=== PATIENT | male | born 1945 | race Caucasian/White ===

== ENCOUNTER 2019-03-15 12:41 | Day surgery (SDC) | payer OTHER ==
[2019-03-15] MEDS ORDERED: ceFAZolin 2 GM/DEXTROSE 100 ML IV ONE (12:55)
[2019-03-15] MEDS ORDERED: LR 1,000 ML IV ONE (12:56)
--- NOTE | 2019-03-15 13:59 | PDHPUP ---
History & Physical Update H&P update statement: This history and physical update is based on an assessment of the patient which was completed after admission or registration (within 24 hours), but prior to the surgery/procedure. H&P update: H&P reviewed & patient examined, no change in patient's condition since H&P completed
--- NOTE | 2019-03-15 14:04 | PDANEPAE ---
ANE History of Present Illness here for TURP ANE Past Medical History - Cardiovascular History Hx Hypertension: Yes Hx Arrhythmias: No Hx Chest Pain: No Hx Coronary Artery / Peripheral Vascular Disease: Yes Hx CHF / Valvular Disease: No Hx Palpitations: No - Pulmonary History Hx COPD: No Hx Asthma/Reactive Airway Disease: No Hx Recent Upper Respiratory Infection: No Hx Oxygen in Use at Home: No Hx Sleep Apnea: No Sleep Apnea Screening Result - Last Documented: Positive - Neurologic History Hx Cerebrovascular Accident: No Hx Seizures: No Hx Dementia: No - Endocrine History Hx Diabetes: No - Renal History Hx Renal Disorders: No - Liver History Hx Hepatic Disorders: No - Neurological & Psychiatric Hx Hx Neurological and Psychiatric Disorders: No - Cancer History Hx Cancer: Yes Cancer History Comment: prostate w/radiation tx 2017 - Congenital Disorder History Hx Congenital Disorders: No - GI History Hx Gastrointestinal Disorders: Yes - Other Health History Other Health History: lower partial. ED - Chronic Pain History Chronic Pain: No - Surgical History Prior Surgeries: greenlight laser sx 2012. colonoscopy 2018 ANE Review of Systems Review of Systems: - Exercise capacity METS (RN): 4 METS ANE Patient History - Allergies Allergies/Adverse Reactions: Sulfa (Sulfonamide Antibiotics) [Sulfa(Sulfonamide Antibiotics)] Allergy ( Verified 03/08/19 11:24) Rash - Home Medications Home medications: home medication list seen and reviewed Home Medications: Multivitamins [Multivitamin (*)] 1 tab PO DAILY 01/14/12 [Last Taken 1 Week Ago ~03/08/19] [place]-3 Fatty Acids [Fish Oil 1000 mg (*)] 1,000 mg PO DAILY 01/14/12 [Last Taken 1 Week Ago ~03/08/19] ESOMEPRAZOLE MAG TRIHYDRATE [NEXIUM] 40 mg PO DAILY 01/15/12 [Last Taken 07:30] Atorvastatin Calcium 03/08/19 [Last Taken 1 Day Ago ~03/14/19] Metoprolol Tartrate 03/08/19 [Last Taken 1 Day Ago ~03/14/19] Tamsulosin HCl 03/08/19 [Last Taken 1 Day Ago ~03/14/19] - NPO status NPO Status: no food or drink >8 hours NPO Since - Liquids (Date): 03/15/19 NPO Since - Liquids (Time): 11:30 NPO Since - Solids (Date): 03/14/19 NPO Since - Solids (Time): 19:00 - Anes Hx Anes Hx: no prior problems - Smoking Hx Smoking Status: Never smoked - Alcohol Use Alcohol Use: Occasionally - Family Anes Hx Family Anes Hx: none Family Hx Anesthesia Complications: none ANE Labs/Vital Signs - Vital Signs Blood Pressure: 147/91 Heart Rate: 72 Respiratory Rate: 19 O2 Sat (%): 96 Height: 177.8 cm Weight: 81.647 kg ANE Physical Exam - Airway Neck exam: FROM Mallampati Score: Class 2 Mouth exam: normal dental/mouth exam - Pulmonary Pulmonary: no respiratory distress, clear to auscultation - Cardiovascular Cardiovascular: regular rate and rhythym, no murmur, rub, or gallop - ASA Status ASA Status: II ANE Anesthesia Plan Anesthesia Plan: GA w LMA
[2019-03-15] MEDS ORDERED: PROPOFOL 200 MG/20 ML VIAL ONE ×2 (14:12→14:34)
[2019-03-15] MEDS ORDERED: LIDOCAINE 2% 100 MG/5 ML SYR ONE (14:12)
[2019-03-15] MEDS ORDERED: fentaNYL 100 MCG/2 ML INJ ONE (14:12)
[2019-03-15] MEDS ORDERED: ONDANSETRON 4 MG/2 ML VIAL IVP PRN (14:52)
[2019-03-15] MEDS ORDERED: NALOXONE HCL 0.4 MG/ML INJ IVP PRN (14:52)
[2019-03-15] MEDS ORDERED: fentaNYL 100 MCG/2 ML INJ IVP PRN (14:52)
[2019-03-15] MEDS ORDERED: oxyCODONE IR 5 MG TAB PO PRN (14:52)
[2019-03-15] MEDS ORDERED: HYDROCODONE/APAP 5/325 TAB PO PRN (14:52)
[2019-03-15] MEDS ORDERED: ACETAMINOPHEN 500 MG TAB PO PRN (14:52)
--- NOTE | 2019-03-15 14:53 | POSTOPPROG ---
Post Op Note Date of Operation: 03/15/19 Surgeon: Mehrdad Huynh Anesthesia: LMA Pre-op Diagnosis: bladder neck contracture Post-op Diagnosis: same Indication: urinary obstruction Procedure: cysto, Transurethral Incision of the Prostate Findings: bladder neck contracture Inf/Abcess present in the surg proc area at time of surgery?: No EBL: Minimal (thomas in place)
--- NOTE | 2019-03-15 14:53 | POSTANESTH ---
Post Anesthetic Evaluation Cardiovascular Status: Normal, Stable, Similar to Pre-Op Cond Respiratory Status: Normal, Stable, Similar to Pre-op Cond. Level of Consciousness/Mental Status: Can Participate in Eval, Alert and Oriented Pain Control: Adequate, Prn Tx Ordered Nausea/Vomiting Control: Adequate, Prn Tx Ordered Complications Possibly Related to Anesthesia: None Noted
[2019-03-15 18:08] VITALS: BP 128/87
--- NOTE | 2019-03-15 22:08 | GOP ---
[f rep st] OPERATIVE REPORT DATE OF OPERATION: 03/15/2019 SURGEON: Mehrdad Huynh MD ANESTHESIA: General. PREOPERATIVE DIAGNOSIS: Bladder neck contracture. POSTOPERATIVE DIAGNOSIS: Bladder neck contracture. PROCEDURE PERFORMED: Cystoscopy with transurethral incision of the prostate. FINDINGS: INDICATIONS: This is a man who previously had had a GreenLight laser photovaporization of the prosta te as well as radiation therapy for prostate cancer who presents with a bladder neck contracture. DESCRIPTION OF PROCEDURE: Consent obtained. Patient was brought in the operating room. Once genera l anesthesia was underway, he was put in lithotomy position and prepped and draped in the normal ster ile fashion. Dilators were utilized to dilate the meatus to 28-[place]ian, and then a 26-[place]ian resectos cope was put into the urethra. This was advanced up to the level of the bladder neck contracture. A Usha knife was utilized to cut the contracture using bipolar electricity at the 5 o'clock and 7 o'clock positions. This was carried down from the bladder neck out toward the verumontanum. Once th is area was opened, the scope was able to enter into the bladder easily. Great care was made to stay way from the ureteral orifices. There was minimal bleeding. The resectoscope was removed, and a cys toscope was replaced so that full cystoscopy of the bladder could be performed, and this revealed sig nificant trabeculation but no mucosal lesions. A [place]ales catheter was inserted. The patient was trans ferred to the recovery room in good condition. /[id number]/MODL
== END 2019-03-15 17:21 | disposition home or self-care (01) ==
LOC: FSGY 12:41
PROVIDERS: ATTEND Urology
PROC: 0V508ZZ Destruction of Prostate, Via Natural or Artificial Opening Endoscopic (ICD-10-PCS; principal; 2019-03-15 14:15)
DX: N32.0 Bladder-neck obstruction (principal); R35.0 Frequency of micturition; R39.198 Other difficulties with micturition; Z85.46 Personal history of malignant neoplasm of prostate
CPT/HCPCS: J0690; J2001; J2704; J3010